=== PATIENT | female | born 1960 ===

== ENCOUNTER → 2018-12-09 16:11 | Outpatient (REF) | payer OTHER, SELFPAY ==
[2018-12-09 17:23] LABS: Free T3, Triiodothyronine Free 5.19 pg/mL (2.77-5.27); Free T4, Direct Thyroxine 0.87 ng/dL (0.78-2.19); Triiodothryronine T3 Uptake 30.2 % (23.5-40.5)
[2018-12-09 17:37] LABS: Thyroid Stimulating Hormone 0.05 uIU/mL (0.47-4.68)
[2018-12-12 14:53] LABS: Anti Thyroglobulin Antibody 1 IU/mL (< 2); Thyroid Peroxidase Antibodies 323 IU/mL (< 9)
[2018-12-12 16:38] LABS: Triiodothyronine T3 Total 150 ng/dL (76-181)
== END ==
LOC: LAB 16:11
PROVIDERS: Visit Provider Naturopath
DX: E06.3 Autoimmune thyroiditis (principal)
CPT/HCPCS: 36415; 84439; 84443; 84479; 84480; 84481; 86376; 86800